=== PATIENT | male | born 1975 | race Two or more races ===

== ENCOUNTER 2023-08-31 11:10 | Emergency (ER) | payer MEDICAID ==
[~2023-08-31] VITALS: Ht 175.3 cm; Wt 75.0 kg
[2023-08-31 11:16] VITALS: O2SAT 98
[2023-08-31 11:37] LABS: BASOPHILS % 0.5 % (0.0-2.0); EOSINOPHILS % 1.5 % (0.0-5.0); HEMATOCRIT. 41.8 % (42.0-52.0); HEMOGLOBIN. 14.2 g/dL (14.0-18.0); MEAN CORPUSCULAR HEMOGLOBIN 31.5 pg (28.0-32.0); MEAN CORPUSCULAR VOLUME 92.6 fL (80.0-94.0); MEAN PLATELET VOLUME 7.4 fl (7.4-10.4); MONOCYTES % 9.2 % (2.0-8.0); NEUTROPHILS % 63.8 % (40.0-76.0); PLATELET 248 x1000/uL (130-400); RED BLOOD CELL COUNT 4.51 mill/uL (4.7-6.1); RED CELL DISTRIBUTION WIDTH 12.5 % (11.6-14.6); WHITE BLOOD COUNT 9.1 x1000/uL (4.5-11.0)
[2023-08-31 11:44] LABS: CHLORIDE 103 mEq/L (98-107); POTASSIUM 3.9 mEq/L (3.5-5.1); SODIUM 134 mEq/L (136-145)
[2023-08-31 11:45] LABS: CALCIUM 9.1 mg/dL (8.7-10.4); CARBON DIOXIDE 25 mEq/L (21-32)
[2023-08-31 11:50] LABS: GLUCOSE 105 mg/dL (70-105); UREA NITROGEN BLOOD 10 mg/dL (9-23)
[2023-08-31 11:52] LABS: ALANINE AMINOTRANSFERASE 43 IU/L (10-49); ALBUMIN 4.5 g/dL (3.2-4.8); ASPARTATE AMINOTRANSFERASE 19 IU/L (<34); BILIRUBIN DIRECT 0.3 mg/dL (<=3.0); BILIRUBIN TOTAL 0.9 mg/dL (0.1-1.0); PROTEIN TOTAL 7.4 g/dL (6.0-8.3)
[2023-08-31] MEDS ORDERED: SENN-308 PO (14:32)
[2023-08-31] MEDS ORDERED: ZINC28PA TOP (14:32)
[2023-08-31] MEDS ORDERED: LIDO35.421 TP (14:32)
[2023-08-31] MEDS ORDERED: HYDR30CR80 TP (14:32)
[2023-08-31 14:44] VITALS: BP 109/76; PULSE 88; RESP 17; TEMP 98.1
== END 2023-08-31 14:46 | disposition home or self-care (01) ==
LOC: ER 11:10
DX: K62.89 Other specified diseases of anus and rectum (principal); Z87.442 Personal history of urinary calculi
CPT/HCPCS: 36415; 80048; 80076; 85025; 99283